=== PATIENT | female | born 1975 | race Caucasian/White ===

== ENCOUNTER 2024-01-20 02:15 | Emergency (ER) | payer OTHER ==
[2024-01-20 02:21] VITALS: BP 147/90; PULSE 62; RESP 17; TEMP 98.1; BMI 28.3
[2024-01-20 04:17] LABS: BASO % 0.8 % (0-2.0); EOS % 2.2 % (0-4.5); HEMATOCRIT 36.5 % (32.4-45.2); HEMOGLOBIN 12.3 GM/dL (10.7-15.3); LYMPH % 32.5 % (8-40); MCH 30.6 pg (25.7-33.7); MCHC 33.7 g/dl (32.0-36.0); MEAN CELL VOLUME 90.7 fl (80-96); MEAN PLT VOLUME 8.1 fl (7.5-11.1); MONO % 6.2 % (3.8-10.2); NEUT % 58.3 % (42.8-82.8); PLATELET COUNT 228 10^3/uL (134-434); RBC 4.02 M/mm3 (3.60-5.2); WHITE BLOOD COUNT 5.6 K/mm3 (4.0-10.0)
[2024-01-20 04:22] LABS: INR 0.85 (0.83-1.09); PROTHROMBIN TIME (PATIENT) 9.7 SEC (9.7-13.0)
[2024-01-20 04:25] LABS: ACTIVATED PTT 27.4 SECONDS (25.2-36.5)
[2024-01-20] MEDS: ACETAMINOPHEN 325 MG TABLET (FP) PO ONE (04:37)
[2024-01-20 05:05] LABS: POTASSIUM 3.9 mmol/L (3.5-5.1)
[2024-01-20 05:07] LABS: CALCIUM 8.5 mg/dL (8.5-10.1)
[2024-01-20 05:08] LABS: ALBUMIN 3.6 g/dl (3.4-5.0); BLOOD UREA NITROGEN 13.4 mg/dL (7-18)
[2024-01-20 05:11] LABS: CREATININE 0.6 mg/dL (0.55-1.3)
[2024-01-20 05:13] LABS: BILIRUBIN,TOTAL 0.1 mg/dL (0.2-1); TOT PROT 6.6 g/dl (6.4-8.2)
== END 2024-01-20 05:46 | disposition home or self-care (01) ==
LOC: JER 02:15
DX: R07.9 Chest pain, unspecified (principal); R11.0 Nausea; R42 Dizziness and giddiness
CPT/HCPCS: 36415; 71046-TC-FY; 80053; 83735; 84484; 84703; 85025; 85610; 85730; 86850; 86900; 86901; 93005; 93010; 99285-25